=== PATIENT | male | born 2000 | race Caucasian/White ===

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

== ENCOUNTER 2019-07-10 18:01 | Emergency (ER) | payer BC ==
[2019-07-10] MEDS ORDERED: Sulfamethox/Trimethoprim DS 800/160* TAB PO ONE (19:41)
[2019-07-10] MEDS ORDERED: Ibuprofen TAB* 600 MG PO ONE (19:41)
--- NOTE | 2019-07-10 19:43 | ED ---
Lower Extremity - HPI Summary HPI Summary: Patient complains of redness and swelling to right ankle. Has history of psoriasis to right ankle, and tried to use nail clipper to eliminate scaly skin. States redness and swelling started today. Denies fever, cough, sore throat, CV, SOB, N/V/V abdominal pain, change in urine, change in BM. Medical history is none. - History of Current Complaint Chief Complaint: EDExtremityLower Stated Complaint: R ANKLE INFECTION PER PT Time Seen by Provider: 07/10/19 19:08 Hx Obtained From: Patient Mechanism Of Injury: Other Onset of Pain: Hours Onset/Duration: Hours Severity Initially: Severe Severity Currently: Severe Pain Intensity: 8 Pain Scale Used: 0-10 Numeric Timing: Constant Location: Is Discrete @ Associated Signs And Symptoms: Positive: Swelling, Redness Aggravating Factor(s): Standing, Ambulation, Movement Alleviating Factor(s): Rest Able to Bear Weight: Yes - Allergies/Home Medications Allergies/Adverse Reactions: Allergies Allergy/AdvReac Type Severity Reaction Status Date / Time No Known Allergies Allergy Verified 07/10/19 19:24 Home Medications: Home Medications Effexor XR- 150 mg PO DAILY 07/10/19 [History Confirmed 07/10/19] PMH/Surg Hx/FS Hx/Imm Hx Endocrine/Hematology History: Denies: Hx Diabetes Cardiovascular History: Denies: Hx Coronary Artery Disease History: Denies: Hx Dialysis Sensory History: Denies: Hx Eye Prosthesis Opthamlomology History: Denies: Hx Legally Blind EENT History: Denies: Hx Deafness Neurological History: Reports: Other Neuro Impairments/Disorders - Concussion Infectious Disease History: No Infectious Disease History: Denies: Traveled Outside the [place] in Last 30 Days - Family History Known Family History: Negative: Hypertension - Social History Alcohol Use: Occasionally Alcohol Amount: tonight Substance Use Type: Reports: Marijuana Substance Use Comment - Amount & Last Used: daily Smoking Status (MU): Never Smoked Tobacco Review of Systems Constitutional: Negative Eyes: Negative ENT: Negative Cardiovascular: Negative Respiratory: Negative Gastrointestinal: Negative Genitourinary: Negative Musculoskeletal: Negative Skin: Other Neurological: Negative Psychological: Normal All Other Systems Reviewed And Are Negative: Yes Physical Exam - Summary Physical Exam Summary: Area of erythema to lateral ankle surrounding area of dry scaly skin or malleolus. Full range of motion of right ankle. PMS intact distally. Calf Nontender. Triage Information Reviewed: Yes Vital Signs On Initial Exam: Initial Vitals Temp Pulse Resp BP Pulse Ox 97.9 F 95 16 123/76 97 07/10/19 18:04 07/10/19 18:04 07/10/19 18:04 07/10/19 18:04 07/10/19 18:04 Vital Signs Reviewed: Yes Appearance: Positive: Well-Appearing Skin: Positive: Warm Head/Face: Positive: Normal Head/Face Inspection Eyes: Positive: Normal Neck: Positive: Supple Respiratory/Lung Sounds: Positive: Clear to Auscultation Cardiovascular: Positive: Normal Abdomen Description: Positive: Nontender Musculoskeletal: Positive: Normal Neurological: Positive: Normal Psychiatric: Positive: Normal AVPU Assessment: Alert - [place] Coma Scale Best Eye Response: 4 - Spontaneous Best Motor Response: 6 - Obeys Commands Best Verbal Response: 5 - Oriented Coma Scale Total: 15 Procedures - Sedation Patient Received Moderate/Deep Sedation with Procedure: No Diagnostics - Vital Signs Vital Signs Temp Pulse Resp BP Pulse Ox 07/10/19 18:04 97.9 F 95 16 123/76 97 - Laboratory Lab Statement: Any lab studies that have been ordered have been reviewed, and results considered in the medical decision making process. Lower Extremity Course/Dx - Course Course Of Treatment: Patient complains of redness and swelling to right ankle. Has history of psoriasis to right ankle, and tried to use nail clipper to eliminate scaly skin. States redness and swelling started today. Denies fever , cough, sore throat, CV, SOB, N/V/V abdominal pain, change in urine, change in BM. Medical history is none. Vital signs within normal limits. Rx for Bactrim. Started here in the ED on Bactrim. - Diagnoses Provider Diagnoses: Cellulitis Discharge ED - Sign-Out/Discharge Documenting (check all that apply): Patient Departure - Discharge Plan Condition: Stable Disposition: HOME Prescriptions: Sulfamethox/Trimethoprim DS* [Bactrim DS 800/160 TAB*] 1 tab PO BID 10 Days #20 tab Patient Education Materials: Cellulitis (ED) Referrals: No Primary Care Phys,[facility] [Primary Care Provider] - Additional Instructions: Take antibiotics twice a day for 10 days. Antibiotics may take up to 2 days to have noticeable effect. Alternate ibuprofen 600 mg with Tylenol 650 mg every 3 hours as needed for pain. Return to the ED for any worsening symptoms. - Billing Disposition and Condition Condition: STABLE Disposition: Home
[2019-07-10 20:06] VITALS: BP 119/76
== END 2019-07-10 20:05 | disposition home or self-care (01) ==
LOC: ED 18:01
DX: L03.90 Cellulitis, unspecified (principal); R60.0 Localized edema; Z79.899 Other long term (current) drug therapy
CPT/HCPCS: 99282; A9270-GY